=== PATIENT | female | born 1965 | race Caucasian/White ===

== ENCOUNTER 2023-08-28 04:46 | Day surgery (SDC) | payer BC ==
[2023-08-24 12:52] VITALS: BMI 25.1
[2023-08-28] MEDS ORDERED: KETOROLAC TROMETHAMINE 30 MG/1 ML VIAL ONE (08:43)
[2023-08-28] MEDS ORDERED: LIDOCAINE HCL 2% JELLY 11 ML TP ONE (09:01)
[2023-08-28 09:08] VITALS: TEMP 97.8
[2023-08-28 09:41] VITALS: BP 129/74; PULSE 78; RESP 18
== END 2023-08-28 09:55 | disposition home or self-care (01) ==
LOC: JASU-ENDO 04:46
PROVIDERS: ATTEND Internal Medicine Gastroenterology
PROC: 06LY7CC Occlusion of Hemorrhoidal Plexus with Extraluminal Device, Via Natural or Artificial Opening (ICD-10-PCS; 2023-08-28)
PROC: 0DJD8ZZ Inspection of Lower Intestinal Tract, Via Natural or Artificial Opening Endoscopic (ICD-10-PCS; principal; 2023-08-28 08:00)
DX: Z12.11 Encounter for screening for malignant neoplasm of colon (principal); K64.3 Fourth degree hemorrhoids; K64.4 Residual hemorrhoidal skin tags; I10 Essential (primary) hypertension